=== PATIENT | male | born 1995 | race Caucasian/White ===

== ENCOUNTER 2017-04-13 23:21 | Inpatient (IN) | payer OTHER ==
[2017-04-13] MEDS ORDERED: SODIUM CHLORIDE 0.9% 1,000 ML IV STA ×2 (23:32→23:34)
--- NOTE | 2017-04-13 23:38 | ED ---
Overdose HPI - General Stated Complaint: Overdose Time Seen by Provider: 04/13/17 23:29 - History of Present Illness Initial Comments: This 21-year-old white male presents via EMS for an overdose. He apparently took a half bottle of unknown milligram Benadryl had a unknown time prior to arrival. He apparently told family that he was trying to commit suicide and and is suffering. The patient at this time is alert and will nod to answer questions but will not verbalize. He is denying any alcohol or drug use. He is denying any current pain. History is limited due to him not talking. No other identifiable complaints or modifying factors. Much of history is obtained per paramedics. Mother does later present and shows me a text that he sent to his girlfriend that is essentially saying that he wants to end his life. His girlfriend also relates to his mother that he has been suicidal for the past several months and has had plans involving guns to end his life. - Related Data Previous Rx's Medication Instructions Recorded Metoclopramide [Reglan] 10 mg PO ACHS #15 tab 06/02/16 Allergies Allergy/AdvReac Type Severity Reaction Status Date / Time No Known Allergies Allergy Verified 04/13/17 23:36 Review of Systems ROS Statement: Those systems with pertinent positive or pertinent negative responses have been documented in the HPI. ROS Other: All systems not noted in ROS Statement are negative. Past Medical History Past Medical History: No Reported History Additional Past Medical History / Comment(s): hydrocele, hernia History of Any Multi-Drug Resistant Organisms: None Reported Past Surgical History: Hernia Repair Additional Past Surgical History / Comment(s): hydrocele Past Psychological History: Anxiety, Bipolar, Depression, PTSD Smoking Status: Never smoker Past Alcohol Use History: None Reported Additional Past Alcohol Use History / Comment(s): Patient is a smoker of 5 cigarettes per day. He states when he drinks alcohol he passes out after couple of drinks and as last time was greater than 1 week ago. He smokes weed and takes pain killers that he gets from his friends. He is currently living with a friend. He does not have any children. He does not have a regular girlfriend. Past Drug Use History: None Reported - Past Family History Father Additional Family Medical History / Comment(s): Patient last saw his father 8 years ago. He is currently in [facility] for robbing [place] and does not know any medical history. Mother Additional Family Medical History / Comment(s): He states he does not talk to his mother does not know her medical history. Patient has 2 brothers and 3 sisters which he stated no major medical problems. General Exam - General Exam Comments Initial Comments: GENERAL: The patient is well nourished and well hydrated. VITAL SIGNS: Heart rate, blood pressure, respiratory rate reviewed as recorded in nurse's notes. EYES: Pupils are round and reactive. Extraocular movements are intact. No conjunctival / lid redness or swelling. ENT: No external evidence of injury, swelling, or ecchymosis. Airway is patent. Throat is clear. NECK: Nontender. No swelling or evidence of injury. No subcutaneous emphysema. Trachea is midline. No thyroid mass. HEART: Tachycardic but regular. Good peripheral pulses. LUNGS/CHEST: Breath sounds clear and equal bilaterally. No rales, rhonchi, or wheezes. No ecchymosis, subcutaneous emphysema, or tenderness. ABDOMEN: Abdomen soft without tenderness. No palpable masses or organomegaly. No peritoneal signs. No abdominal wall swelling or ecchymosis. EXTREMITIES: No extremity tenderness. Normal muscle tone and function. No thoracolumbar tenderness. NEUROLOGIC: Sensation is grossly intact. He is moving all extremities. He is currently nonverbal but alert. SKIN: No abrasions or ecchymosis is noted. No induration or masses noted. PSYCHIATRIC: Alert and but nonverbal. Will follow commands. Course Vital Signs 04/13/17 23:23 Temperature 97.9 F Pulse Rate 144 H Respiratory 16 Rate Blood Pressure 158/88 O2 Sat by Pulse 100 Oximetry Medical Decision Making - Medical Decision Making The patient was seen and examined. All diagnostics are reviewed. The EKG shows a sinus tachycardia at a rate of 141. There is no acute ST-T wave changes identified. The [place] interval is 132, QRS duration is 84, and the QTc interval is 431. An IV is started and he is thoroughly hydrated. The laboratory is reviewed and is essentially within normal limits. He does have a positive testing for marijuana on his drug screen. He receives significant fluids as well as some benzodiazepines. The Poison Control Center just relates supportive treatment is necessary including benzodiazepines as well as IV fluids and monitoring. Due to his mental status changes and significant tachycardia, it is felt as though she would require admission to the hospital for further treatment. The case is discussed with internal medicine and they' re agreeable to admission. - Lab Data Result diagrams: 04/13/17 23:52 04/13/17 23:52 Lab Results 04/13/17 04/13/17 04/14/17 Range/Units 23:52 23:52 00:06 WBC 6.6 (3.8-10.6) k/uL RBC 5.80 (4.30-5.90) m/uL Hgb 14.8 (13.0-17.5) gm/dL Hct 43.1 (39.0-53.0) % MCV 74.3 L (80.0-100.0) fL MCH 25.5 (25.0-35.0) pg MCHC 34.4 (31.0-37.0) g/dL RDW 12.9 (11.5-15.5) % Plt Count 214 (150-450) k/uL Neutrophils % 64 % Lymphocytes % 24 % Monocytes % 7 % Eosinophils % 2 % Basophils % 0 % Neutrophils # 4.3 (1.3-7.7) k/uL Lymphocytes # 1.6 (1.0-4.8) k/uL Monocytes # 0.4 (0-1.0) k/uL Eosinophils # 0.2 (0-0.7) k/uL Basophils # 0.0 (0-0.2) k/uL Sodium 140 (137-145) mmol/L Potassium 4.3 (3.5-5.1) mmol/L Chloride 103 (98-107) mmol/L Carbon Dioxide 24 (22-30) mmol/L Anion Gap 13 mmol/L BUN 8 L (9-20) mg/dL Creatinine 0.90 (0.66-1.25) mg/dL Est GFR (MDRD) Af Amer >60 (>60 ml/min/1.73 sqM) Est GFR (MDRD) Non-Af >60 (>60 ml/min/1.73 sqM) Glucose 90 (74-99) mg/dL Calcium 9.7 (8.4-10.2) mg/dL Total Bilirubin 0.7 (0.2-1.3) mg/dL Conjugated Bilirubin 0.0 (0.0-0.3) mg/dL Unconjugated Bilirubin 0.4 (0.0-1.1) mg/dL Delta Bilirubin 0.3 H (0.0-0.2) mg/dL AST 25 (17-59) U/L ALT 25 (21-72) U/L Alkaline Phosphatase 87 (38-126) U/L Total Protein 7.9 (6.3-8.2) g/dL Albumin 4.9 (3.5-5.0) g/dL Urine Color Light Yellow Urine Appearance Clear (Clear) Urine pH 6.0 (5.0-8.0) Ur Specific [place] 1.005 (1.001-1.035) Urine Protein Negative (Negative) Urine Glucose (UA) Negative (Negative) Urine Ketones Negative (Negative) Urine Blood Negative (Negative) Urine Nitrite Negative (Negative) Urine Bilirubin Negative (Negative) Urine Urobilinogen <2.0 (<2.0) mg/dL Ur Leukocyte Esterase Negative (Negative) Salicylates <1.0 mg/dL Urine Opiates Screen Not Detected (NotDetected) Ur Oxycodone Screen Not Detected (NotDetected) Urine Methadone Screen Not Detected (NotDetected) Ur Propoxyphene Screen Not Detected (NotDetected) Acetaminophen <10.0 ug/mL Ur Barbiturates Screen Not Detected (NotDetected) U Tricyclic Antidepress Not Detected (NotDetected) Ur Phencyclidine Scrn Not Detected (NotDetected) Ur Amphetamines Screen Not Detected (NotDetected) U Methamphetamines Scrn Not Detected (NotDetected) U Benzodiazepines Scrn Not Detected (NotDetected) Urine Cocaine Screen Not Detected (NotDetected) U Marijuana (THC) Screen Detected H (NotDetected) Serum Alcohol <10 mg/dL Disposition Clinical Impression: Overdose, Suicidal ideation, Depression, Sinus tachycardia, Marijuana abuse Disposition: ADMITTED IP TO THIS [facility] Condition: Fair Time of Disposition: 01:12 Decision Date: 04/14/17 Decision Time: 01:12
[2017-04-14] LABS: Basophils % (A) 0 %; CH 25.1; Eosinophils # (A) 0.2 k/uL (0-0.7); Eosinophils % (A) 2 %; HCT 43.1 % (39.0-53.0); HDW 2.82; HGB 14.8 gm/dL (13.0-17.5); Luc # (Auto) 0.19; Luc % (Auto) 3; Lymphocytes # (A) 1.6 k/uL (1.0-4.8); Lymphocytes % (A) 24 %; MCH 25.5 pg (25.0-35.0); MCHC 34.4 g/dL (31.0-37.0); MCV 74.3 fL (80.0-100.0); Mean Platelet Volume 6.9; Monocytes # (A) 0.4 k/uL (0-1.0); Monocytes % (A) 7 %; Neutrophils # (A) 4.3 k/uL (1.3-7.7); Neutrophils % (A) 64 %; RDW 12.9 % (11.5-15.5); WBC 6.6 k/uL (3.8-10.6); WBC (Perox) 6.57
[2017-04-14 00:07] LABS: ALT 25 U/L (21-72); AST 25 U/L (17-59); Acetaminophen <10.0 ug/mL; Alcohol <10 mg/dL; Alkaline Phosphatase 87 U/L (38-126); Anion Gap 13 mmol/L; Bilirubin, Delta 0.3 mg/dL (0.0-0.2); Blood Urea Nitrogen 8 mg/dL (9-20); Calcium 9.7 mg/dL (8.4-10.2); Carbon Dioxide 24 mmol/L (22-30); Chloride 103 mmol/L (98-107); Glucose 90 mg/dL (74-99); Non-African American GFR(MDRD) >60 (>60 ml/min/1.73 sqM); Potassium 4.3 mmol/L (3.5-5.1); Salicylate <1.0 mg/dL; Sodium 140 mmol/L (137-145); Total Bilirubin 0.7 mg/dL (0.2-1.3); Total Protein 7.9 g/dL (6.3-8.2)
[2017-04-14 00:12] LABS: Appearance,Urine Clear (Clear); Bilirubin,Urine Negative (Negative); Glucose,Urine (UA) Negative (Negative); Ketones,Urine Negative (Negative); Leukocyte Esterase,Urine Negative (Negative); Nitrite,Urine Negative (Negative); Protein,Urine Negative (Negative); Specific Gravity,Urine 1.005 (1.001-1.035); UA Billing (MACRO vs. MICRO) CHEM; Urobilinogen,Urine <2.0 mg/dL (<2.0)
[2017-04-14] MEDS ORDERED: LORazepam 2 MG/ML SYRINGE IV STA ×2 (00:22→01:26)
[2017-04-14] MEDS ORDERED: ACETAMINOPHEN TAB 325 MG TAB PO PRN (01:12)
[2017-04-14] MEDS ORDERED: NALOXONE 0.4 MG/ML 1 ML VIAL IV PRN (01:12)
[2017-04-14] MEDS ORDERED: ONDANSETRON 4 MG/2 ML VIAL IVP PRN (01:12)
[2017-04-14] MEDS: LORazepam 2 MG/ML SYRINGE IV PRN ×9 (03:51→21:32)
[2017-04-14 05:18] VITALS: BMI 26.9
[2017-04-14 07:35] LABS: Basophils % (A) 0 %; CH 26.3; CHCM 34.4; Eosinophils # (A) 0.1 k/uL (0-0.7); Eosinophils % (A) 1 %; HCT 42.4 % (39.0-53.0); HDW 2.75; HGB 13.9 gm/dL (13.0-17.5); Luc # (Auto) 0.28; Luc % (Auto) 2; Lymphocytes # (A) 1.4 k/uL (1.0-4.8); Lymphocytes % (A) 10 %; MCH 25.2 pg (25.0-35.0); MCHC 32.9 g/dL (31.0-37.0); MCV 76.8 fL (80.0-100.0); Mean Platelet Volume 7.6; Monocytes # (A) 0.7 k/uL (0-1.0); Monocytes % (A) 5 %; Neutrophils # (A) 10.5 k/uL (1.3-7.7); Neutrophils % (A) 81 %; RBC 5.52 m/uL (4.30-5.90); RDW 14.2 % (11.5-15.5); WBC (Perox) 12.48
[2017-04-14 07:43] LABS: Anion Gap 11 mmol/L; Blood Urea Nitrogen 6 mg/dL (9-20); Calcium 9.5 mg/dL (8.4-10.2); Carbon Dioxide 25 mmol/L (22-30); Chloride 105 mmol/L (98-107); Glucose 91 mg/dL (74-99); Magnesium 1.7 mg/dL (1.6-2.3); Non-African American GFR(MDRD) >60 (>60 ml/min/1.73 sqM); Potassium 3.9 mmol/L (3.5-5.1); Sodium 141 mmol/L (137-145)
[2017-04-14 07:59] LABS: Glucose,Whole Blood 96 mg/dL (75-99)
[2017-04-14] MEDS ORDERED: LORazepam 2 MG/ML SYRINGE IV PRN ×2 (09:17→12:59)
[2017-04-14] MEDS: 1: MVI, ADULT NO.4 WITH VIT K 10 ML, THIAMINE 100 MG, FOLIC ACID 1 MG in SODIUM CHLORIDE IV SCH ×8 (10:22→21:18)
[2017-04-14] MEDS: ENOXAPARIN 40 MG/0.4 ML SYRINGE SQ SCH (10:40)
[2017-04-14] MEDS: PANTOPRAZOLE 40 MG/10 ML VIAL IV SCH (10:42)
[2017-04-14] MEDS ORDERED: SODIUM CHLORIDE 0.9% 1,000 ML BAG ONE (13:49)
[2017-04-14 16:34] LABS: Creatine Kinase MB 0.4 ng/mL (0.0-2.4)
--- NOTE | 2017-04-14 16:49 | P.CNPUL ---
History of Present Illness Consult date: 04/14/17 Requesting physician: Kadeem White Reason for consult: other (ICU management) Chief complaint: Overdose History of present illness: This is a 21-year-old white male who came to the emergency room via EMS for overdose. Apparently per the records the patient did take a half bottle of Benadryl at an unknown time with an unknown milligram dose. The patient did tell his family that he was trying to commit suicide and his overdose was intentional. The patient is alert and able to nod head however he is not verbalizing any responses. He is able to follow commands, however is unclear why he will not talk he has been noted to say some words such as "shut up" to the nursing staff. According to the patient's girlfriend he has been suicidal for the last several months and has told her he wants to commit suicide and had a plan with a gun to end his life. Urine drug screen was positive for marijuana. It is also suspected that the patient may be alcohol dependent and was started on a CIWA protocol. Patient is also being followed by poison control. Patient is being put on suicide precautions. Psych has been consult it. All labs and reports have been reviewed. Upon examination the patient's resting up in bed on room air. Continues to be nonverbal however is following commands and moves all extremities, does make eye contact does not his head appropriately. Review of Systems Review of systems is unable to be obtained due to the patient not communicating with us verbally. Past Medical History Past Medical History: No Reported History Additional Past Medical History / Comment(s): hydrocele, hernia. pt not responding- hx is per medical record. History of Any Multi-Drug Resistant Organisms: None Reported Past Surgical History: Hernia Repair Additional Past Surgical History / Comment(s): hydrocele Past Anesthesia/Blood Transfusion Reactions: No Reported Reaction Past Psychological History: Anxiety, Bipolar, Depression, PTSD Smoking Status: Current every day smoker Past Alcohol Use History: Occasional Additional Past Alcohol Use History / Comment(s): Patient is a smoker of 5 cigarettes per day. He states when he drinks alcohol he passes out after couple of drinks and as last time was greater than 1 week ago. He smokes weed and takes pain killers that he gets from his friends. He is currently living with a friend. He does not have any children. He does not have a regular girlfriend. (this is per the medical record; in ER, pt's mother said he has a girlfriend) Past Drug Use History: None Reported Additional Drug Use History / Comment(s): no reported drug use; urine positive for marijuana - Past Family History Father Additional Family Medical History / Comment(s): Patient last saw his father 8 years ago. He is currently in jail for robbing [place] and does not know any medical history. Mother Family Medical History: Hyperlipidemia Additional Family Medical History / Comment(s): per medical record, pt does not know history of mother Medications and Allergies Home Medications Medication Instructions Recorded Confirmed Type No Known Home Medications [No 04/14/17 04/14/17 History Known Home Medications] Allergies Allergy/AdvReac Type Severity Reaction Status Date / Time No Known Allergies Allergy Verified 04/13/17 23:36 Physical Exam Vitals: Vital Signs Temp Pulse Pulse Resp BP BP Pulse Ox 04/14/17 16:20 83 18 118/65 98 04/14/17 16:10 83 17 125/71 98 04/14/17 16:00 84 19 125/71 98 04/14/17 15:50 84 19 120/67 98 04/14/17 15:40 87 19 132/63 97 04/14/17 15:30 85 19 132/63 97 04/14/17 15:20 83 18 129/60 98 04/14/17 15:10 85 19 132/60 97 04/14/17 15:00 83 19 132/60 97 04/14/17 14:50 87 19 128/63 97 04/14/17 14:40 87 20 129/66 97 04/14/17 14:30 88 20 129/66 97 04/14/17 14:20 92 22 147/76 96 04/14/17 14:10 104 H 24 132/76 98 04/14/17 14:00 118 H 26 H 151/80 97 04/14/17 13:50 118 H 26 H 151/80 94 L 04/14/17 13:40 130 H 25 H 142/86 98 04/14/17 13:30 131 H 25 H 142/86 98 04/14/17 13:20 116 H 19 136/60 95 04/14/17 13:10 140 H 24 142/68 98 04/14/17 13:00 115 H 150/74 95 04/14/17 12:50 135 H 150/74 97 04/14/17 12:40 116 H 123/71 97 04/14/17 12:30 98.0 F 133 H 29 H 123/71 96 04/14/17 12:20 109 H 32 H 139/86 98 04/14/17 12:10 111 H 23 143/72 98 04/14/17 12:00 114 H 32 H 147/78 97 04/14/17 11:50 116 H 32 H 147/78 98 04/14/17 11:40 97.8 F 112 H 16 145/73 98 04/14/17 11:30 109 H 123 H 24 145/73 98 04/14/17 11:20 86 24 140/85 98 04/14/17 11:10 115 H 149/76 98 04/14/17 11:00 112 H 149/76 98 04/14/17 10:50 108 H 139/81 99 04/14/17 10:40 110 H 25 H 148/78 98 04/14/17 10:30 109 H 26 H 154/98 98 04/14/17 10:20 113 H 24 154/98 97 04/14/17 10:10 109 H 19 98 04/14/17 10:00 107 H 20 98 04/14/17 09:50 113 H 20 156/106 98 04/14/17 09:40 108 H 24 149/75 97 04/14/17 09:30 115 H 18 149/75 96 04/14/17 09:20 117 H 30 H 180/109 98 04/14/17 09:10 112 H 22 160/93 98 04/14/17 09:00 113 H 32 H 160/93 97 04/14/17 08:50 116 H 36 H 156/91 96 04/14/17 08:40 117 H 40 H 173/79 98 04/14/17 08:30 119 H 30 H 173/79 97 04/14/17 08:20 125 H 30 H 174/89 96 04/14/17 08:10 126 H 47 H 153/90 97 04/14/17 08:02 98.1 F 141 H 31 H 153/90 99 04/14/17 03:40 97.9 F 123 H 18 139/92 98 04/14/17 01:47 97.5 F L 121 H 20 132/81 99 04/14/17 01:39 97.8 F 111 H 16 147/95 100 04/13/17 23:23 97.9 F 144 H 16 158/88 100 Intake and Output 04/14/17 04/14/17 04/14/17 06:59 14:59 22:59 Intake Total 800 600 200 Output Total 1400 2425 150 Balance -600 -1825 50 Intake: Intake, IV Titration 800 600 200 Amount Mvi, Adult No.4 with Vit 400 200 K 10 ml Thiamine 100 mg Folic Acid 1 mg In Sodium Chloride 0.9% 1,000 ml @ 100 mls/hr IV .BY DURATION ADALID Rx#: [id number] Sodium Chloride 0.9% 1, 200 000 ml @ 100 mls/hr IV . BY DURATION ADALID Rx#: [id number] Sodium Chloride 0.9% 1, 800 000 ml @ 100 mls/hr IV . Q10H STA Rx#:[id number] Output: Urine 1400 2425 150 Other: Voiding Method Indwelling Catheter Indwelling Catheter Weight 78 kg 78 kg Patient Weight 04/15/17 06:59 Weight 78 kg GENERAL EXAM: Alert, nods appropriately, follows simple commands, comfortable in no apparent distress. However is non-verbal most of the time with the staff. HEAD: Normocephalic. EYES: Normal reaction of pupils, equal size. NOSE: Clear with pink turbinates. THROAT: No erythema or exudates. NECK: No masses, no JVD. CHEST: No chest wall deformity. LUNGS: Lungs noted to be slightly coarse throughout, patient noted to have diminished bases CVS: S1 and S2 normal with no audible mumurs, regular rhythm. ABDOMEN: No hepatosplenomegaly, normal bowel sounds, no guarding or rigidity. EXTREMITIES: No edema noted, pedal pulses palpable. SKIN: No rashes CENTRAL NERVOUS SYSTEM: No focal deficits, tone is normal in all 4 extremities. Results - Laboratory Findings CBC and BMP: 04/14/17 07:13 04/14/17 07:13 Abnormal lab findings: Abnormal Labs 04/13/17 04/13/17 04/14/17 23:52 23:52 00:06 WBC MCV 74.3 L Neutrophils # BUN 8 L Delta Bilirubin 0.3 H Total Creatine Kinase U Marijuana (THC) Screen Detected H 04/14/17 04/14/17 04/14/17 07:13 07:13 15:33 WBC 13.0 H MCV 76.8 L Neutrophils # 10.5 H BUN 6 L Delta Bilirubin Total Creatine Kinase 224 H U Marijuana (THC) Screen Assessment and Plan Plan: Assessment Intentional overdose, suicidal attempt Sinus tachycardia Hypertension Marijuana use Depression Plan Medications have been reviewed and will be continued as ordered. Maintain on [facility] protocol. Obtain chest x-ray in the morning. We'll try to obtain more information from the girlfriend and mother once they come in. Continue close contact with poison control and appreciate any recommendations. Psych has also been consulted. Continue with suicide precautions. Continue with pulmonary hygiene, coughing and deep breathing exercises, and supportive care. Supplemental oxygen to maintain oxygen saturations of 92% or better. GI and DVT prophylaxis. We will continue to monitor labs/results and adjust treatment as necessary. Further recommendations pending. I performed an examination of the patient and discussed their management with the nurse practitioner. I have reviewed the nurse practitioner's note and agree with the documented findings and plan of care.
[2017-04-14] MEDS: THIAMINE 100 MG TAB PO SCH (20:10)
[2017-04-14 22:29] LABS: Creatine Kinase MB 0.5 ng/mL (0.0-2.4)
[2017-04-15] MEDS: LORazepam 2 MG/ML SYRINGE IV PRN ×2 (04:24→11:33)
[2017-04-15 04:54] LABS: Basophils % (A) 0 %; CH 25.9; CHCM 33.8; Eosinophils # (A) 0.2 k/uL (0-0.7); Eosinophils % (A) 2 %; HCT 40.8 % (39.0-53.0); HDW 2.75; HGB 13.6 gm/dL (13.0-17.5); Luc # (Auto) 0.27; Luc % (Auto) 3; Lymphocytes % (A) 26 %; MCH 25.6 pg (25.0-35.0); MCHC 33.2 g/dL (31.0-37.0); MCV 77.1 fL (80.0-100.0); Mean Platelet Volume 7.5; Monocytes # (A) 0.5 k/uL (0-1.0); Monocytes % (A) 6 %; Neutrophils % (A) 63 %; RBC 5.29 m/uL (4.30-5.90); WBC (Perox) 8.02
[2017-04-15 05:09] LABS: ALT 26 U/L (21-72); AST 19 U/L (17-59); Alkaline Phosphatase 78 U/L (38-126); Anion Gap 10 mmol/L; Blood Urea Nitrogen 9 mg/dL (9-20); Calcium 9.4 mg/dL (8.4-10.2); Carbon Dioxide 24 mmol/L (22-30); Chloride 105 mmol/L (98-107); Glucose 75 mg/dL (74-99); Magnesium 1.7 mg/dL (1.6-2.3); Non-African American GFR(MDRD) >60 (>60 ml/min/1.73 sqM); Potassium 4.3 mmol/L (3.5-5.1); Sodium 139 mmol/L (137-145); Total Bilirubin 1.4 mg/dL (0.2-1.3); Total Protein 6.9 g/dL (6.3-8.2)
[2017-04-15 05:26] LABS: Creatine Kinase MB 0.9 ng/mL (0.0-2.4)
--- NOTE | 2017-04-15 07:17 | XR ---
EXAMINATION TYPE: XR chest 1V portable DATE OF EXAM: 04/15/2017 COMPARISON: NONE HISTORY: Shortness of breath TECHNIQUE: Single frontal view of the chest is obtained. FINDINGS: There is no focal air space opacity, pleural effusion, or pneumothorax seen. The cardiac silhouette size is within normal limits. The osseous structures are intact. IMPRESSION: No acute process.
[2017-04-15] MEDS: PANTOPRAZOLE 40 MG/10 ML VIAL IV SCH (07:58)
[2017-04-15] MEDS: 1: MVI, ADULT NO.4 WITH VIT K 10 ML, THIAMINE 100 MG, FOLIC ACID 1 MG in SODIUM CHLORIDE IV SCH ×8 (07:59→18:13)
[2017-04-15] MEDS: ENOXAPARIN 40 MG/0.4 ML SYRINGE SQ SCH (07:59)
[2017-04-15] MEDS ORDERED: SODIUM CHLORIDE 0.9% 1,000 ML BAG ONE (13:51)
[2017-04-15] MEDS: THIAMINE 100 MG TAB PO SCH ×2 (17:00→17:52)
--- NOTE | 2017-04-15 20:10 | P.PN ---
Subjective Principal diagnosis: Drug overdose, major depression Patient seen and examined in the ICU, currently more stable more awake now tolerating by mouth well normal venous distress his present hemodynamics are stable. It is reviewed, patient is being observed and monitored in ICU for sinus tachycardia hypertension and major depression with suicidal attempt or CLINICALLY doing well patient will be transferred out of the ICU psych has been following Objective - Vital Signs Vital signs: Vital Signs Temp 97.1 F L 04/15/17 15:00 Pulse 95 04/15/17 15:00 Resp 20 04/15/17 15:00 BP 118/56 04/15/17 15:00 Pulse Ox 98 04/15/17 15:00 Intake & Output 04/15/17 04/15/17 04/16/17 06:59 18:59 06:59 Intake Total 2211.2 2100 Output Total 1075 Balance 1136.2 2100 Weight 77.3 kg Intake: IV 1100 1100 Sodium Chloride 0.9% 1, 1100 1100 000 ml @ 100 mls/hr IV . BY DURATION ADALID Rx#: [id number] Intake, IV Titration 1111.2 1000 Amount Mvi, Adult No.4 with Vit 1111.2 K 10 ml Thiamine 100 mg Folic Acid 1 mg In Sodium Chloride 0.9% 1,000 ml @ 100 mls/hr IV .BY DURATION ADALID Rx#: [id number] Sodium Chloride 0.9% 1, 1000 000 ml @ 100 mls/hr IV . BY DURATION ADALID Rx#: [id number] Output: Urine 1075 Other: Voiding Method Indwelling Catheter Toilet # Voids 0 1 # Bowel Movements 0 - Exam GENERAL EXAM: Alert, nods appropriately, follows simple commands, comfortable in no apparent distress. However is non-verbal most of the time with the staff. HEAD: Normocephalic. EYES: Normal reaction of pupils, equal size. NOSE: Clear with pink turbinates. THROAT: No erythema or exudates. NECK: No masses, no JVD. CHEST: No chest wall deformity. LUNGS: Lungs noted to be slightly coarse throughout, patient noted to have diminished bases CVS: S1 and S2 normal with no audible mumurs, regular rhythm. ABDOMEN: No hepatosplenomegaly, normal bowel sounds, no guarding or rigidity. EXTREMITIES: No edema noted, pedal pulses palpable. SKIN: No rashes CENTRAL NERVOUS SYSTEM: No focal deficits, tone is normal in all 4 extremities. - Labs CBC & Chem 7: 04/15/17 04:03 04/15/17 04:03 Labs: Abnormal Lab Results - Last 24 Hours (Table) 04/14/17 04/15/17 04/15/17 Range/Units 21:32 04:03 04:03 MCV 77.1 L (80.0-100.0) fL Total Bilirubin (0.2-1.3) mg/dL Total Creatine Kinase 212 H 210 H (55-170) U/L 04/15/17 Range/Units 04:03 MCV (80.0-100.0) fL Total Bilirubin 1.4 H (0.2-1.3) mg/dL Total Creatine Kinase (55-170) U/L Assessment and Plan Plan: Intentional overdose, suicidal attempt Sinus tachycardia, microcytic anemia with electrolyte imbalance Hypertension Marijuana use Depression Plan Medications have been reviewed and will be continued as ordered. Maintain on [facility] protocol. Obtain chest x-ray in the morning. We'll try to obtain more information from the girlfriend and mother once they come in. Continue close contact with poison control and appreciate any recommendations. Psych has also been consulted. Continue with suicide precautions. Continue with pulmonary hygiene, coughing and deep breathing exercises, and supportive care. Supplemental oxygen to maintain oxygen saturations of 92% or better. GI and DVT prophylaxis. We will continue to monitor labs/results and adjust treatment as necessary. Further recommendations pending. For now can be moved out of the ICU with further recommendations pending, for microcytic anemia can be followed on an outpatient setting primary care provider, may very well be related to iron deficiency anemia Time with Patient: Greater than 30
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
[2017-04-16] MEDS: 1: MVI, ADULT NO.4 WITH VIT K 10 ML, THIAMINE 100 MG, FOLIC ACID 1 MG in SODIUM CHLORIDE IV SCH ×8 (04:21→14:20)
[2017-04-16] MEDS ORDERED: PANTOPRAZOLE 40 MG TABLET PO SCH (07:30)
[2017-04-16] MEDS: ENOXAPARIN 40 MG/0.4 ML SYRINGE SQ SCH (07:32)
[2017-04-16 08:03] VITALS: RESP 20; TEMP 97.1
--- NOTE | 2017-04-16 11:20 | P.PN ---
Subjective 04/14/17- This is a 21-year-old white male who came to the emergency room via EMS for overdose. Apparently per the records the patient did take a half bottle of Benadryl at an unknown time with an unknown milligram dose. The patient did tell his family that he was trying to commit suicide and his overdose was intentional. The patient is alert and able to nod head however he is not verbalizing any responses. He is able to follow commands, however is unclear why he will not talk he has been noted to say some words such as "shut up" to the nursing staff. According to the patient's girlfriend he has been suicidal for the last several months and has told her he wants to commit suicide and had a plan with a gun to end his life. Urine drug screen was positive for marijuana. It is also suspected that the patient may be alcohol dependent and was started on a CIWA protocol. Patient is also being followed by poison control. Patient is being put on suicide precautions. Psych has been consult it. All labs and reports have been reviewed. Upon examination the patient's resting up in bed on room air. Continues to be nonverbal however is following commands and moves all extremities, does make eye contact does not his head appropriately. 04/15/17- Patient seen and examined in the ICU, currently more stable more awake now tolerating by mouth well normal venous distress his present hemodynamics are stable. It is reviewed, patient is being observed and monitored in ICU for sinus tachycardia hypertension and major depression with suicidal attempt or CLINICALLY doing well patient will be transferred out of the ICU psych has been following 04/16/17- patient is being seen examined and followed up within the medical surgical unit. Upon examination patient's resting up in bed on room air. He continues to be hemodynamically stable. Psych services has been contacted and we are waiting a evaluation and recommendations. Objective - Vital Signs Vital signs: Vital Signs Temp 97.1 F L 04/16/17 07:00 Pulse 109 H 04/16/17 09:15 Resp 20 04/16/17 07:00 BP 95/51 04/16/17 07:00 Pulse Ox 98 04/16/17 09:15 Intake & Output 04/15/17 04/16/17 04/16/17 18:59 06:59 18:59 Intake Total 3111.2 1200 Balance 3111.2 1200 Intake: IV 1100 1200 Sodium Chloride 0.9% 1, 1100 1200 000 ml @ 100 mls/hr IV . BY DURATION ADALID Rx#: [id number] Intake, IV Titration 2011.2 Amount Mvi, Adult No.4 with Vit 1011.2 K 10 ml Thiamine 100 mg Folic Acid 1 mg In Sodium Chloride 0.9% 1,000 ml @ 100 mls/hr IV .BY DURATION ADALID Rx#: [id number] Sodium Chloride 0.9% 1, 1000 000 ml @ 100 mls/hr IV . BY DURATION ADALID Rx#: [id number] Other: Voiding Method Toilet Toilet # Voids 1 2 - Exam GENERAL EXAM: Alert, comfortable in no apparent distress. HEAD: Normocephalic. EYES: Normal reaction of pupils, equal size. NOSE: Clear with pink turbinates. THROAT: No erythema or exudates. NECK: No masses, no JVD. CHEST: No chest wall deformity. LUNGS: Lungs noted to be slightly coarse throughout, patient noted to have diminished bases CVS: S1 and S2 normal with no audible mumurs, regular rhythm. ABDOMEN: No hepatosplenomegaly, normal bowel sounds, no guarding or rigidity. EXTREMITIES: No edema noted, pedal pulses palpable. SKIN: No rashes CENTRAL NERVOUS SYSTEM: No focal deficits, tone is normal in all 4 extremities. - Labs CBC & Chem 7: 04/15/17 04:03 04/15/17 04:03 Assessment and Plan Plan: Assessment Intentional overdose, suicidal attempt Sinus tachycardia Hypertension Marijuana use Depression Plan Patient is cleared from a pulmonary/critical care standpoint. We will sign off and only see this patient on an as-needed basis only, do not hesitate to call with any questions. Medications have been reviewed and will be continued as ordered. Continue close contact with poison control and appreciate any recommendations. Psych has also been consulted. Continue with suicide precautions. Continue with pulmonary hygiene, coughing and deep breathing exercises, and supportive care. Supplemental oxygen to maintain oxygen saturations of 92% or better. GI and DVT prophylaxis. We will continue to monitor labs/results and adjust treatment as necessary. Further recommendations pending. I performed an examination of the patient and discussed their management with the nurse practitioner. I have reviewed the nurse practitioner's note and agree with the documented findings and plan of care.
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
[2017-04-16] MEDS: THIAMINE 100 MG TAB PO SCH ×2 (13:04→17:09)
[2017-04-16] MEDS ORDERED: SODIUM CHLORIDE 0.9% 1,000 ML BAG ONE (13:51)
[2017-04-16 15:45] VITALS: BP 119/77; PULSE 83
--- NOTE | 2017-04-16 17:47 | PN ---
PROGRESS NOTE Date of Service: ICU time is 30 minutes. SUBJECTIVE: 21-year-old, white male, who appears to be less tachycardic. Heart rate . He is on CIWA protocol. He is resting more comfortably and less anxious. Await psychiatric consultation. Cardiovascular S1-S2. Lungs transmitted upper airway sounds. Hematology: Negative Homans. Integument: Decreased tremor. ASSESSMENT: 1. Benadryl overdose. 2. Bipolar. 3. Acute respiratory distress. 4. Polysubstance withdrawal. Continue PT/OT, Ativan p.r.n. psychiatric consultation for [facility] placement. MMODL / IJN: [id number] /
--- NOTE | 2017-04-17 12:10 | CONS ---
PSYCHIATRIC CONSULTATION DATE OF CONSULTATION: 04/16/2017. PURPOSE FOR CONSULTATION: Evaluate for depression and overdose. INTERVAL HISTORY: The patient continues to be down and withdrawn. He has been cooperative with staff. He has been shown any dramatic mood changes as mother had noted. I reviewed with the patient issues regarding the petition for involuntary treatment. The patient was not fully in agreement with what was documented. I discussed with the patient that there was enough serious issues in the documentation plus things that the patient himself had indicated that would warrant a psychiatric hospitalization. He was not wishing this though he was willing to accept a transfer to the psychiatric unit with hopefully a short stay to get things stabilized and then be discharged. The patient was willing to sign in voluntarily. He has been seen by a [facility] in the past. The best I understand is that his last contact was in 2015. He was diagnosed with major depression, posttraumatic stress disorder, cannabis use disorder and rule out ADHD. He has not been on psychotropic medications since that time according to the patient. When I saw the patient today, he was in bed. He gave good eye contact. Psychomotor activity was slowed. Speech was monotone. He answered questions appropriately. His thoughts were clear, his affect was blunted. His mood reserved. He was somewhat distressed. ASSESSMENT AND PLAN: I will continue the current diagnosis. I discussed plans to transfer the patient to the psychiatric unit. He reluctantly agreed and was willing to sign in voluntarily. We will transfer to the psychiatric unit when a bed is available. ROBLES / ZAN: [id number] / JOSE M
== END 2017-04-16 18:45 | DRG 918 ==
LOC: EC 23:21 → 6SEL 04-14 01:12 → 6ICU 04-14 07:48 → 4MS4W 04-15 12:13
PROVIDERS: ADMIT Family Medicine; ATTEND Family Medicine
DX: T45.0X2A Poisoning by antiallergic and antiemetic drugs, intentional self-harm, initial encounter (principal); F19.939 Other psychoactive substance use, unspecified with withdrawal, unspecified; I10 Essential (primary) hypertension; F10.20 Alcohol dependence, uncomplicated; D50.9 Iron deficiency anemia, unspecified; F43.10 Post-traumatic stress disorder, unspecified; F41.9 Anxiety disorder, unspecified; R00.0 Tachycardia, unspecified; F32.9 Major depressive disorder, single episode, unspecified; F17.210 Nicotine dependence, cigarettes, uncomplicated; F12.10 Cannabis abuse, uncomplicated; R06.00 Dyspnea, unspecified; Z91.5 Personal history of self-harm; Y92.9 Unspecified place or not applicable
CPT/HCPCS: 36415; 71010; 80048; 80053; 80306; 80320; 81003; 82248; 82550; 82553; 83520; 83605; 83735; 84100; 85025; 93005; 96361; 96374; 96376; 99285

== ENCOUNTER 2017-04-16 17:46 | Inpatient (IN) | payer MEDICAID, OTHER ==
[2017-04-16] MEDS ORDERED: ZIPRASIDONE 20 MG VIAL IM PRN (18:00)
[2017-04-16] MEDS ORDERED: LORazepam 1 MG TAB PO PRN (18:00)
[2017-04-16] MEDS ORDERED: ACETAMINOPHEN TAB 325 MG TAB PO PRN (18:00)
[2017-04-16] MEDS ORDERED: MAG HYDROX/AL HYDROX/SIMETH 30 ML CUP PO PRN (18:00)
[2017-04-16] MEDS ORDERED: MAGNESIUM HYDROXIDE 2,400 MG/10 ML CUP PO PRN (18:00)
[2017-04-16] MEDS ORDERED: LORazepam 2 MG/ML SYRINGE IM PRN (18:05)
[2017-04-17 08:21] LABS: Basophils % (A) 0 %; CH 26.2; CHCM 34.7; Eosinophils # (A) 0.2 k/uL (0-0.7); Eosinophils % (A) 3 %; HDW 2.94; HGB 14.3 gm/dL (13.0-17.5); Luc # (Auto) 0.16; Luc % (Auto) 3; Lymphocytes # (A) 2.1 k/uL (1.0-4.8); Lymphocytes % (A) 35 %; MCH 25.1 pg (25.0-35.0); MCHC 33.1 g/dL (31.0-37.0); MCV 75.8 fL (80.0-100.0); Mean Platelet Volume 7.1; Monocytes # (A) 0.4 k/uL (0-1.0); Monocytes % (A) 6 %; Neutrophils # (A) 3.2 k/uL (1.3-7.7); Neutrophils % (A) 53 %; RBC 5.68 m/uL (4.30-5.90); RDW 14.4 % (11.5-15.5); WBC 5.9 k/uL (3.8-10.6); WBC (Perox) 5.82
[2017-04-17 09:03] LABS: ALT 21 U/L (21-72); AST 19 U/L (17-59); Alkaline Phosphatase 72 U/L (38-126); Anion Gap 11 mmol/L; Blood Urea Nitrogen 7 mg/dL (9-20); Calcium 9.6 mg/dL (8.4-10.2); Carbon Dioxide 29 mmol/L (22-30); Chloride 103 mmol/L (98-107); Glucose 89 mg/dL (74-99); Non-African American GFR(MDRD) >60 (>60 ml/min/1.73 sqM); Potassium 4.2 mmol/L (3.5-5.1); Sodium 143 mmol/L (137-145); Total Bilirubin 0.5 mg/dL (0.2-1.3); Total Protein 7.6 g/dL (6.3-8.2)
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
[2017-04-18 11:34] LABS: Appearance,Urine Clear (Clear); Bilirubin,Urine Negative (Negative); Glucose,Urine (UA) Negative (Negative); Ketones,Urine Negative (Negative); Leukocyte Esterase,Urine Negative (Negative); Nitrite,Urine Negative (Negative); Protein,Urine Negative (Negative); Specific Gravity,Urine 1.011 (1.001-1.035); UA Billing (MACRO vs. MICRO) CHEM; Urobilinogen,Urine <2.0 mg/dL (<2.0)
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
--- NOTE | 2017-04-19 08:15 | PN ---
PROGRESS NOTE DATE OF SERVICE: 04/18/2017. CHIEF COMPLAINT: The patient was depressed. He told people that he had overdosed on Benadryl as a suicide attempt. He felt hopeless. He was stressed over the break-up with a girlfriend. INTERVAL HISTORY: The patient has been doing fair. He had a quiet evening last night. He slept well. Today he is up and about. The patient himself presents in a fairly bright manner. He minimizes any problems or issues he has. He says he is hopeful to be discharged soon. We had made an effort to set up a family meeting with his mother though she will be out of the state until the middle of this coming week. It is noted that the neonatal social worker had contact with Harjeet who is the person who he has been living with. He has known Harjeet for a long time. Harjeet expressed significant concern regarding the patient he described the patient as being impulsive and disrespectful. Patient is poorly motivated to assist in any way. He expressed concern that he has several guns in the house that are not secured and that there would be significant risk if the patient has voiced suicide thoughts. Harjeet was recommending that the patient remain in the hospital until a meeting could be arranged involving his mother and possibly others. The information provided by Harjeet had not been reviewed with the patient at the time that I saw him. The patient was accepting of the idea of a family meeting though he felt that his mother would not likely provide a very useful information. He has had some situations with others where he may have had some boundary issues and inappropriate discussions. Otherwise he has not had significant issues with mood or function. MENTAL STATUS: Patient gave fairly good eye contact. He was somewhat restless. Speech was clear. He answered questions with brief responses. His affect was somewhat blunted. His mood was quiet. He did not appear to be significantly distressed. ASSESSMENT: I will continue the current diagnosis and treatment plan. We will continue the patient off psychotropic medications. There are significant concerns that have been expressed both by the patient's mother as well as an the person he has been living with for number of years. He may present with significant risky behavior in regards to harm to self. We will need to continue the hospitalization until we can adequately evaluate his situation, consider initiating medications and developing a an appropriate followup plan. MMODL / IJN: [id number] /
--- NOTE | 2017-04-19 16:06 | PN ---
PROGRESS NOTE DATE OF SERVICE: 04/19/2017. CHIEF COMPLAINT: The patient was depressed. He told people that he had overdosed on Benadryl as a suicide attempt. He felt hopeless. He was stressed over the break-up with a girlfriend. INTERVAL HISTORY: Patient continues to struggle. He is distressed about being in the hospital. He was informed about the contact we had with his friend Harjeet where he has been living for a number of years. Harjeet had indicated that the patient could not come back to live there. The main concern is that Harjeet stated, "he refuses to go to therapy or try medications." His mother has essentially said the same thing. The patient talks about how no one cares about him or shows any concern for his struggles. Patient continues to be adamant about the idea that he will not try medications. He stresses that he is being forced into treatment. We did review issues relating to the petition that his mother signed. The patient does acknowledge that he had the behavior that he did that led to his hospitalization. I had an extensive discussion with the patient regarding the idea that if he was to begin a medication now we would be able to use that as a good step forward towards discharge planning. We do have a family meeting set up for the middle of the week. I discussed that the likelihood is if he does not get on medications now it will only prolong his hospitalization and not likely be to his benefit. We discussed that if he tries medications now we would be able to monitor how he does and address any concerns he might have. MENTAL STATUS EXAM: Patient gave fair eye contact. He was restless. He was ruminative in his thoughts. His affect was intense. He was tearful. He was distressed. His mood was depressed. ASSESSMENT: I will continue the current diagnosis and treatment plan. I strongly encouraged the patient to get started on a medication. At this point my choice would be to start him on Abilify for the sake of simplicity and with the option that he could be started on a long-acting injectable. We will set up a family meeting aiming for the middle of the week. It is possible we could get his friend Harjeet in along with his mother. Will continue to focus on stabilization and discharge planning. MMODL / SHAINAN: [id number] /
--- NOTE | 2017-04-20 17:01 | PN ---
PROGRESS NOTE / TRANSFER NOTE DATE OF SERVICE: 04/20/2017. CHIEF COMPLAINT: The patient was depressed, he told people that he had overdosed on Benadryl as a suicide attempt. He felt hopeless. He was stressed over the break-up with a girlfriend. SUMMARY: The patient was admitted for depression with suicidal thinking. He has a long history of difficult behaviors, mainly where he has a little sense of responsibility in daily matters. This prompted his prompted his mother to have him leave home around age 18. He has been living with an older gentleman who has been a friend over the last several years. Social work contact with the friend indicated the same as what mother has reported. There is question as to whether the friend will take the patient back to his house. He made the same statement that mother did, namely that "refuses to go to counseling or try medications." It is noted that the patient likely has intellectual disability, mild, and has very limited understanding of social issues and need to regulate his own behavior and function. He is adamant about refusing medications. A family meeting, hopefully with mother and the friend, can be set up in the next few days as part of discharge planning. INTERVAL HISTORY: Patient has been doing fair. He continues in the same mode. He declines medications. I strongly encouraged the patient to try Abilify, which would be potentially a simple medication and one that could be converted to a long-acting injectable. The patient has declined each day I have talked to him about it, he is adamant about wanting to be discharged though he really has no sense of what is to come once he leaves the hospital. He has had past followup with [facility]. He should be referred to some programs for intellectual disability including something like a sheltered workshop. He needs social skills training. He has had no change in his general health. He tolerates his psychotropic medications. MENTAL STATUS: Patient gave fair eye contact. He was a little restless. His affect was somewhat intense. He had dysphoric mood. He was moderately distressed. ASSESSMENT: I will continue the current diagnosis and the general treatment plan. At this point, our only option is to set up a family meeting, hopefully with mother and friend Harjeet, as a possible way of getting him to get involved in some adequate treatment. He is not likely to take medications other than a long-acting injectable. He needs to be referred to [facility] for supportive services for his intellectual disability. MMAPOLINARL / IJN: [id number] / JOSE M
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
[2017-04-23 07:06] VITALS: BP 101/53; PULSE 69; RESP 16; TEMP 98.1
[2017-04-23] MEDS: CITALOPRAM HYDROBROMIDE 20 MG TAB PO SCH (10:38)
[2017-04-24] MEDS: CITALOPRAM HYDROBROMIDE 20 MG TAB PO SCH (08:29)
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
== END 2017-04-24 18:25 | disposition home or self-care (01) | DRG 885 ==
LOC: 3MHU 18:52
PROVIDERS: ADMIT Psychiatry & Neurology Psychiatry; ATTEND Psychiatry & Neurology Psychiatry
DX: F33.2 Major depressive disorder, recurrent severe without psychotic features (principal); F70 Mild intellectual disabilities; R45.851 Suicidal ideations; F60.3 Borderline personality disorder; F17.200 Nicotine dependence, unspecified, uncomplicated; F12.10 Cannabis abuse, uncomplicated; F43.10 Post-traumatic stress disorder, unspecified; Z59.0 Homelessness; Z79.899 Other long term (current) drug therapy; Z62.810 Personal history of physical and sexual abuse in childhood
CPT/HCPCS: 80053; 81003; 84443; 85025